=== PATIENT | male | born 1940 | race Caucasian/White ===

== ENCOUNTER 2018-10-21 20:40 | Observation (INO) | payer MEDICARE, BC ==
[2018-10-21] MEDS ORDERED: Sodium Chloride 0.9% 10 ML Syringe FLUSH PRN ×2 (20:55→21:47)
--- NOTE | 2018-10-21 21:02 | EDM.PDOC ---
ED HPI GENERAL MEDICAL PROBLEM - General Chief Complaint: General Stated Complaint: high blood sugar, panic attack, arm hurts, stroke Time Seen by Provider: 10/21/18 20:40 Source of Information: Reports: Patient, EMS, Family History Limitations: Reports: No Limitations - History of Present Illness INITIAL COMMENTS - FREE TEXT/NARRATIVE: in with c/o developed right sided weakness and increase in anxiety at 1930, no cp or sob, no abd pain, no nv, no ear/nose or throat sx. no unusual neck/back pain or stiffness, no palpitations or irregular heart beat. no fever or chills, was at a family birthday when sx started. Onset: Today, Sudden Duration: Minutes: Severity: Mild Improves with: Reports: None Worsens with: Reports: None Associated Symptoms: Reports: Weakness. 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 Denies: Fever, Chills HEENT: Reports: No Symptoms. Denies: Sinus Problem, Throat Pain, Vision Change Respiratory: Reports: No Symptoms. Denies: Shortness of Breath Cardiovascular: Reports: No Symptoms. Denies: Chest Pain, Dyspnea on Exertion, Lightheadedness, Palpitations, Syncope Endocrine: Reports: No Symptoms GI/Abdominal: Reports: No Symptoms. Denies: Abdominal Pain, Nausea, Vomiting : Reports: No Symptoms Musculoskeletal: Reports: No Symptoms Skin: Reports: No Symptoms. Denies: Pallor, Diaphoresis, Bruising, Rash, Erythema Neurological: Reports: Weakness, Other (right sided weakness). Denies: Headache Psychiatric: Reports: Anxiety ED EXAM, GENERAL - Physical Exam Exam: See Below Exam Limited By: No Limitations General Appearance: Alert, WD/WN, Anxious Eye Exam: Bilateral Eye: EOMI, PERRL Ears: Normal External Exam, Normal Canal, Hearing Grossly Normal, Normal TMs Nose: Normal Inspection, Normal Mucosa Throat/Mouth: Normal Inspection, Normal Lips, Normal Oropharynx Head: Atraumatic, Normocephalic Neck: Normal Inspection, Supple, Non-Tender, Full Range of Motion Respiratory/Chest: No Respiratory Distress, Lungs Clear, Normal Breath Sounds Cardiovascular: Normal Peripheral Pulses, Regular Rate, Rhythm, No Edema, No Murmur Peripheral Pulses: 2+: Radial (L), Radial (R), Dorsalis Pedis (L), Dorsalis Pedis (R) GI/Abdominal: Soft, Non-Tender Back Exam: Normal Inspection, Full Range of Motion Extremities: Normal Inspection, Normal Range of Motion, Non-Tender, No Pedal Edema, Normal Capillary Refill, Other (no calf pain) Neurological: Alert, Oriented, CN II-XII Intact, Normal Cognition, No Motor/ Sensory Deficits Psychiatric: Normal Affect, Anxious Skin Exam: Warm, Dry, Intact, Normal Color, No Rash EKG INTERPRETATION EKG Date: 10/21/18 Time: 21:29 Rhythm: NSR [place]: Normal P-Wave: Present QRS: Normal ST-T: Normal QT: Normal EKG Interpretation Comments: NSR Course - Vital Signs Text/Narrative:: the pt was evaluated in the ED, CBC and general chem are essi neg, glucose is elevated, EKG and CXR neg, CT head pending reading by radiologist, will need to admit to observation to monitor pt, will repeat blood work in the AM and monitor the pt surveillance monitor and neuro checks, will give ativan for anxiety, changes will be made on reassessment and evaluations of further labs - Orders/Labs/Meds Orders: Active Orders 24 hr Category Date Time Status Chest 1V Frontal [CR] Stat Exams 10/21/18 20:55 Taken Head wo Cont [CT] Stat Exams 10/21/18 20:55 Taken Sodium Chloride 0.9% [Saline Flush] Med 10/21/18 20:55 Active 10 ml FLUSH ASDIRECTED PRN Saline Lock Insert [OM.PC] Routine Oth 10/21/18 20:55 Ordered Medication Orders Sodium Chloride (Saline Flush) 10 ml FLUSH ASDIRECTED PRN PRN Reason: Keep Vein Open Labs: Laboratory Tests 10/21/18 10/21/18 Range/Units 20:55 20:55 WBC 8.6 (5.0-10.0) 10^3/uL RBC 5.33 (4.50-6.00) 10^6/uL Hgb 15.5 (14.0-18.0) g/dL Hct 46.4 (40.0-54.0) % MCV 87.1 (82.0-94.0) fL MCH 29.1 (27.0-32.0) pg MCHC 33.4 (33.0-38.0) g/dL RDW Coeff of Lydia 15.7 H (11.0-15.0) % Plt Count 198 (150-400) 10^3/uL Neut % (Auto) 61.7 (35-85) % Lymph % (Auto) 22.9 (10-55) % Starr % (Auto) 11.5 (0-16) % Eos % (Auto) 3.4 (0-5) % Baso % (Auto) 0.5 (0-3) % Neut # (Auto) 5.28 (1.80-7.00) 10^3/uL Lymph # (Auto) 1.96 (1.00-4.80) 10^3/uL Starr # (Auto) 0.98 H (0.00-0.80) 10^3/uL Eos # (Auto) 0.29 (0.00-0.45) 10^3/uL Baso # (Auto) 0.04 10^3/uL Sodium 141 (136-145) mEq/L Potassium 4.6 (3.5-5.0) mEq/L Chloride 104 (98-106) mEq/L Carbon Dioxide 26 (21-32) mmol/L BUN 35 H (7-18) mg/dL Creatinine 1.8 H (0.7-1.3) mg/dL Est Cr Clr Drug Dosing TNP Estimated GFR (MDRD) 37 L (>=60) mL/min Glucose 294 H (75-99) mg/dL Calcium 8.8 (8.4-10.1) mg/dL Total Bilirubin 0.6 (0.0-1.0) mg/dL AST 19 (15-37) U/L ALT 29 (12-78) U/L Alkaline Phosphatase 101 (46-116) U/L Troponin I < 0.017 (0.00-0.06) ng/mL Total Protein 7.1 (6.4-8.2) g/dL Albumin 4.0 (3.4-5.0) g/dL Meds: Medications Generic Name Dose Route Start Last Admin Trade Name Bibi PRN Reason Stop Dose Admin Sodium Chloride 10 ml 10/21/18 20:55 Saline Flush FLUSH ASDIRECTED PRN Keep Vein Open Departure - Departure Time of Disposition: 21:46 Disposition: Admitted As Inpatient 65 Condition: Good Clinical Impression: Weakness, Anxiety, Hyperglycemia, Renal insufficiency - Discharge Information *PRESCRIPTION DRUG MONITORING PROGRAM REVIEWED*: Not Applicable *COPY OF PRESCRIPTION DRUG MONITORING REPORT IN PATIENT HI: Not Applicable Forms: ED Department Discharge - Problem List & Annotations (1) Anxiety SNOMED Code(s): 09973565 Code(s): F41.9 - ANXIETY DISORDER, UNSPECIFIED Status: Acute Priority: High (2) Hyperglycemia SNOMED Code(s): 96207853 Code(s): R73.9 - HYPERGLYCEMIA, UNSPECIFIED Status: Acute Priority: High (3) Weakness SNOMED Code(s): 82570477 Code(s): R53.1 - WEAKNESS Status: Acute Priority: High (4) Renal insufficiency SNOMED Code(s): 749011253, 721620796 Code(s): N28.9 - DISORDER OF KIDNEY AND URETER, UNSPECIFIED Status: Acute Current Visit: Yes - Problem List Review Problem List Initiated/Reviewed/Updated: Yes - My Orders Last 24 Hours: My Active Orders 10/21/18 20:55 Chest 1V Frontal [CR] Stat Head wo Cont [CT] Stat Sodium Chloride 0.9% [Saline Flush] 10 ml FLUSH ASDIRECTED PRN Saline Lock Insert [OM.PC] Routine - Assessment/Plan Admission H&P: Please use this note as an admission H&P Last 24 Hours: My Active Orders 10/21/18 20:55 Chest 1V Frontal [CR] Stat Head wo Cont [CT] Stat Sodium Chloride 0.9% [Saline Flush] 10 ml FLUSH ASDIRECTED PRN Saline Lock Insert [OM.PC] Routine Plan: as above
[2018-10-21 21:23] LABS: CHLORIDE,CL 104 mEq/L (98-106); SODIUM,NA 141 mEq/L (136-145)
[2018-10-21] MEDS ORDERED: LORazepam 0.5 MG Tab PO PRN (21:52)
[2018-10-22] MEDS ORDERED: LISINOPRIL PO SCH (08:00)
[2018-10-22] MEDS ORDERED: GLIMEPIRIDE 2 MG PO SCH (08:00)
[2018-10-22] MEDS ORDERED: PIOGLITAZONE HCL 30 MG PO SCH (08:00)
[2018-10-22] MEDS ORDERED: HYDROCHLOROTHIAZIDE PO SCH (08:00)
[2018-10-22] MEDS ORDERED: atorvaSTATin 20 MG Tab PO SCH (08:00)
[2018-10-22] MEDS ORDERED: buPROPion 150 MG Tab.ER PO SCH (08:00)
--- NOTE | 2018-10-22 08:41 | PCM.DCSUM1 ---
Discharge Summary - Hospital Course Free Text/Narrative:: pt was admitted last night, he has been given Ativan for his anxiety and is feeling much better this am, blood work is stable, pt will be able to be dc home , the pt advised "I think I was close to having a nervous breakdown" the pt will be dc with Ativan 1 mg tid prn and will f/u with pcp on Tuesday, will return to ED sooner if worse or problems HPI Initial Comments: feeling better, no weakness, no anxiety, no cp or sob, no abd pain, no nv Brief History: as above Diagnosis: Stroke: No - Discharge Data Discharge Date: 10/22/18 Discharge Disposition: Home, Self-Care 01 Condition: Good - Discharge Diagnosis/Problem(s) (1) Anxiety SNOMED Code(s): 83876571 ICD Code: F41.9 - ANXIETY DISORDER, UNSPECIFIED Status: Acute Priority: High Current Visit: No (2) Hyperglycemia SNOMED Code(s): 33128173 ICD Code: R73.9 - HYPERGLYCEMIA, UNSPECIFIED Status: Acute Priority: High Current Visit: No (3) Weakness SNOMED Code(s): 61893122 ICD Code: R53.1 - WEAKNESS Status: Acute Priority: High Current Visit: No (4) Renal insufficiency SNOMED Code(s): 101507492, 074091256 ICD Code: N28.9 - DISORDER OF KIDNEY AND URETER, UNSPECIFIED Status: Acute Current Visit: No - Patient Instructions Diet: Heart Healthy Diet Activity: As Tolerated Driving: May Drive Today Showering/Bathing: May Shower Other/Special Instructions: ativan 1mg 3 x a day as needed for anxiety. follow up with your family doctor this week, call tuesday for an appointment time. return to the ER as needed - Discharge Plan *PRESCRIPTION DRUG MONITORING PROGRAM REVIEWED*: Not Applicable *COPY OF PRESCRIPTION DRUG MONITORING REPORT IN PATIENT HI: Not Applicable Home Medications: Home Meds Bisoprolol Fumarate/HCTZ [Ziac 5-6.25 MG] 1 tab PO DAILY 10/21/18 [History] Glimepiride [Amaryl] 2 mg PO BID 10/21/18 [History] Lisinopril/Hydrochlorothiazide [Lisinopril-Hctz 10-12.5 mg Tab] 1 tab PO DAILY 10/21/18 [History] Pioglitazone HCl [Actos] 30 mg PO DAILY 10/21/18 [History] atorvaSTATin [Lipitor] 20 mg PO DAILY 10/21/18 [History] buPROPion HCl [Wellbutrin Xl] 150 mg PO BID 10/21/18 [History] Oxygen Therapy Mode: Room Air Forms: ED Department Discharge Referrals: PCP,Unknown [Primary Care Provider] - - Discharge Summary/Plan Comment DC Time >30 min.: No Discharge Summary/Plan Comment: as above - General Info Date of Service: 10/22/18 - Review of Systems General: Reports: No Symptoms. Denies: Weakness HEENT: Reports: No Symptoms. Denies: Headaches Pulmonary: Reports: No Symptoms Cardiovascular: Reports: No Symptoms Gastrointestinal: Reports: No Symptoms Genitourinary: Reports: No Symptoms Musculoskeletal: Reports: No Symptoms Skin: Reports: No Symptoms Neurological: Reports: No Symptoms Psychiatric: Reports: No Symptoms - Patient Data Vitals - Most Recent: Last Vital Signs Temp 36.1 C 10/22/18 04:00 Pulse 67 10/22/18 04:00 Resp 18 10/22/18 04:00 BP 121/65 10/22/18 04:00 Pulse Ox 98 10/22/18 04:00 Weight - Most Recent: 80.331 kg I&O - Last 24 hours: Intake & Output 10/21/18 10/22/18 10/22/18 22:59 06:59 14:59 Intake Total 300 300 Balance 300 300 Lab Results - Last 24 hrs: Laboratory Results - last 24 hr 10/21/18 10/21/18 10/22/18 Range/Units 20:55 20:55 05:11 WBC 8.6 (5.0-10.0) 10^3/uL RBC 5.33 (4.50-6.00) 10^6/uL Hgb 15.5 (14.0-18.0) g/dL Hct 46.4 (40.0-54.0) % MCV 87.1 (82.0-94.0) fL MCH 29.1 (27.0-32.0) pg MCHC 33.4 (33.0-38.0) g/dL RDW Coeff of Lydia 15.7 H (11.0-15.0) % Plt Count 198 (150-400) 10^3/uL Neut % (Auto) 61.7 (35-85) % Lymph % (Auto) 22.9 (10-55) % [place] % (Auto) 11.5 (0-16) % Eos % (Auto) 3.4 (0-5) % Baso % (Auto) 0.5 (0-3) % Neut # (Auto) 5.28 (1.80-7.00) 10^3/uL Lymph # (Auto) 1.96 (1.00-4.80) 10^3/uL [place] # (Auto) 0.98 H (0.00-0.80) 10^3/uL Eos # (Auto) 0.29 (0.00-0.45) 10^3/uL Baso # (Auto) 0.04 10^3/uL Sodium 141 141 (136-145) mEq/L Potassium 4.6 3.8 (3.5-5.0) mEq/L Chloride 104 105 (98-106) mEq/L Carbon Dioxide 26 29 (21-32) mmol/L BUN 35 H 31 H (7-18) mg/dL Creatinine 1.8 H 1.4 H (0.7-1.3) mg/dL Est Cr Clr Drug Dosing TNP 40.00 Estimated GFR (MDRD) 37 L 49 L (>=60) mL/min Glucose 294 H 254 H (75-99) mg/dL POC Glucose (75-105) mg/dl Calcium 8.8 8.6 (8.4-10.1) mg/dL Total Bilirubin 0.6 (0.0-1.0) mg/dL AST 19 (15-37) U/L ALT 29 (12-78) U/L Alkaline Phosphatase 101 (46-116) U/L Troponin I < 0.017 (0.00-0.06) ng/mL Total Protein 7.1 (6.4-8.2) g/dL Albumin 4.0 (3.4-5.0) g/dL 10/22/18 10/22/18 Range/Units 07:30 07:44 WBC 7.1 (5.0-10.0) 10^3/uL RBC 4.94 (4.50-6.00) 10^6/uL Hgb 14.6 (14.0-18.0) g/dL Hct 43.5 (40.0-54.0) % MCV 88.1 (82.0-94.0) fL MCH 29.6 (27.0-32.0) pg MCHC 33.6 (33.0-38.0) g/dL RDW Coeff of Lydia 15.7 H (11.0-15.0) % Plt Count 176 (150-400) 10^3/uL Neut % (Auto) 55.4 (35-85) % Lymph % (Auto) 29.1 (10-55) % [place] % (Auto) 11.5 (0-16) % Eos % (Auto) 3.7 (0-5) % Baso % (Auto) 0.3 (0-3) % Neut # (Auto) 3.92 (1.80-7.00) 10^3/uL Lymph # (Auto) 2.06 (1.00-4.80) 10^3/uL [place] # (Auto) 0.81 H (0.00-0.80) 10^3/uL Eos # (Auto) 0.26 (0.00-0.45) 10^3/uL Baso # (Auto) 0.02 10^3/uL Sodium (136-145) mEq/L Potassium (3.5-5.0) mEq/L Chloride (98-106) mEq/L Carbon Dioxide (21-32) mmol/L BUN (7-18) mg/dL Creatinine (0.7-1.3) mg/dL Est Cr Clr Drug Dosing Estimated GFR (MDRD) (>=60) mL/min Glucose (75-99) mg/dL POC Glucose 260 H (75-105) mg/dl Calcium (8.4-10.1) mg/dL Total Bilirubin (0.0-1.0) mg/dL AST (15-37) U/L ALT (12-78) U/L Alkaline Phosphatase (46-116) U/L Troponin I (0.00-0.06) ng/mL Total Protein (6.4-8.2) g/dL Albumin (3.4-5.0) g/dL Med Orders - Current: Current Medications Atorvastatin Calcium (Lipitor) 20 mg PO DAILY KATHY Bisoprolol Fumarate/HCTZ (Ziac 5-6.25 Mg) 1 tab PO DAILY KATHY Bupropion HCl (Wellbutrin Xl) 150 mg PO BID [facility] Lorazepam (Ativan) 0.5 mg PO Q8H PRN PRN Reason: Anxiety Last Admin: 10/21/18 22:54 Dose: 0.5 mg Non-Formulary Medication (Glimepiride [Amaryl]) 2 mg PO BID KATHY Non-Formulary Medication (Lisinopril/Hydrochlorothiazide) 1 tab PO DAILY [facility] Non-Formulary Medication (Pioglitazone Hcl [Actos]) 30 mg PO DAILY KATHY Sodium Chloride (Saline Flush) 10 ml FLUSH ASDIRECTED PRN PRN Reason: Keep Vein Open Sodium Chloride (Saline Flush) 10 ml FLUSH ASDIRECTED PRN PRN Reason: Keep Vein Open - Exam General: Reports: Alert, Oriented, Cooperative, No Acute Distress Neck: Reports: Supple Lungs: Reports: Clear to Auscultation, Normal Respiratory Effort Cardiovascular: Reports: Regular Rate, Regular Rhythm GI/Abdominal Exam: Soft, Non-Tender Back Exam: Reports: Normal Inspection, Full Range of Motion Extremities: Normal Inspection, Normal Range of Motion, Non-Tender, No Pedal Edema, Normal Capillary Refill Skin: Reports: Warm, Dry, Intact Neurological: Reports: No New Focal Deficit Psy/Mental Status: Reports: Alert, Normal Affect, Normal Mood
[2018-10-22] MEDS ORDERED: LORazepam 0.5 MG Tab PO ONE (08:44)
== END 2018-10-22 11:15 | disposition home or self-care (01) ==
LOC: CC.ED 20:40 → CC.MS 21:47 → INTOOBSV 21:47 → UNDOADMIN 23:23 → CC.MS 23:23 → UNDODISIN 10-22 11:15
PROVIDERS: ADMIT Nurse Practitioner; ATTEND Family Medicine
DX: F41.9 Anxiety disorder, unspecified (principal); E11.65 Type 2 diabetes mellitus with hyperglycemia; R53.1 Weakness; I10 Essential (primary) hypertension; N28.89 Other specified disorders of kidney and ureter; Z79.84 Long term (current) use of oral hypoglycemic drugs; Z79.899 Other long term (current) drug therapy; R29.818 Other symptoms and signs involving the nervous system
CPT/HCPCS: 36415; 70450; 71045; 80048; 80053; 82962; 84484; 85025; 93005; 93010; 99217; 99220; 99285; A9270; G0378

== ENCOUNTER 2024-11-15 20:13 | Observation (INO) | payer MEDICARE, BC ==
[2024-11-15] MEDS ORDERED: Sodium Chloride 0.9% 10 ML Syringe FLUSH PRN (22:29)
[2024-11-15] MEDS ORDERED: 50% Dextrose in Water 50 ML Syringe IVPUSH PRN (22:29)
[2024-11-15] MEDS ORDERED: Ondansetron 4 MG Tab.DIS PO PRN (22:29)
[2024-11-15] MEDS ORDERED: Ondansetron 4 MG/2 ML SDV IV PRN (22:29)
[2024-11-15] MEDS ORDERED: Nitroglycerin 0.4 MG Tab.SL SL SCH (22:30)
[2024-11-15] MEDS: Insulin Glarg,Human.Rec.Analog 100 Unit/ML 10 ML Vial SUBCUT SCH (23:04)
[2024-11-16] MEDS: buPROPion 150 MG Tab.ER PO SCH (07:37)
[2024-11-16] MEDS ORDERED: GLIMEPIRIDE 2 MG PO SCH (08:00)
[2024-11-16] MEDS ORDERED: PANTOPRAZOLE 20 MG PO SCH (08:00)
[2024-11-16] MEDS ORDERED: Non-Formulary Medication 1 Each (Dapagliflozin Propanediol [Farxiga] 5 MG Tablet) PO SCH (08:00)
== END 2024-11-16 11:00 | disposition home or self-care (01) ==
LOC: CC.ED 20:13 → CC.MS 22:16 → UNDOADMOB 22:26
PROVIDERS: ADMIT Physician Assistant Medical; ATTEND Physician Assistant Medical
DX: S06.5X0A Traumatic subdural hemorrhage without loss of consciousness, initial encounter (principal); S01.81XA Laceration without foreign body of other part of head, initial encounter; I12.9 Hypertensive chronic kidney disease with stage 1 through stage 4 chronic kidney disease, or unspecified chronic kidney disease; E11.22 Type 2 diabetes mellitus with diabetic chronic kidney disease; N18.9 Chronic kidney disease, unspecified; E78.00 Pure hypercholesterolemia, unspecified; I25.10 Atherosclerotic heart disease of native coronary artery without angina pectoris; Z79.4 Long term (current) use of insulin; Z88.0 Allergy status to penicillin; Z79.82 Long term (current) use of aspirin; Z79.899 Other long term (current) drug therapy; W19.XXXA Unspecified fall, initial encounter
CPT/HCPCS: 12001; 70450; 82947; 99284; A9270-GY; G0378; J1815-GY